=== PATIENT | male | born 1970 | race Two or more races ===

== ENCOUNTER 2021-05-09 10:57 | Emergency (ER) | payer MEDICAID ==
[~2021-05-09] VITALS: Ht 160 cm; Wt 97.5 kg
--- NOTE | 2021-05-09 11:03 | NUR ---
BIBRA 40 C/O SHAKING AND HIGH BLOOD PRESSURE. PT STATED HE LAST DRANK X1 DAY. PT IS A&O X4. PT BREATHING IS REGULAR AND UNLABORED. PT WAS ATTCHED TO MONITOR.
--- NOTE | 2021-05-09 11:04 | NUR ---
DR CORTES AT BEDSIDE.
--- NOTE | 2021-05-09 11:06 | NUR ---
20G IV L AC WAS INITIATED. LAB WERE COLLECTED AND SENT.
--- NOTE | 2021-05-09 11:12 | NUR ---
URINE WAS COLLECTED AND SENT TO LAB
[2021-05-09] MEDS ORDERED: ONDANSETRON HCL/PF 4 MG/2 ML VIAL ONE (11:18)
[2021-05-09] MEDS ORDERED: LORAZEPAM INJ 2 MG/ML VIAL ONE ×2 (11:19→11:59)
[2021-05-09 11:26] LABS: CALCIUM, SERUM 8.9 mg/dL (8.5-10.1); CARBON DIOXIDE 27 mmol/L (21-32); CHLORIDE 104 mmol/L (98-107); CREATININE 0.7 mg/dL (0.6-1.3); GLUCOSE 145 mg/dL (74-106); POTASSIUM 3.6 mmol/L (3.5-5.1); SODIUM SERUM 145 mmol/L (136-145); UREA NITROGEN, BLOOD 7 mg/dL (7-18)
[2021-05-09] MEDS ORDERED: IV NS 0.9% 1,000 ML BAG IV ONE (11:30)
[2021-05-09] MEDS ORDERED: ONDANSETRON HCL/PF 4 MG/2 ML VIAL IVP ONE (11:30)
[2021-05-09] MEDS ORDERED: LORAZEPAM INJ 2 MG/ML VIAL IV ONE (11:30)
[2021-05-09 11:31] LABS: ALANINE AMINOTRANSFERASE 56 U/L (12-78); ALBUMIN 3.6 g/dL (3.4-5.0); ALCOHOL, BLOOD 208 mg/dL (0-0); ALKALINE PHOSPHATASE 239 U/L (46-116); ASPARTATE AMINOTRANSFERASE 112 U/L (15-37); BILIRUBIN,DIRECT 0.9 mg/dL (0.0-0.2); BILIRUBIN,TOTAL 1.6 mg/dL (0.2-1.0); TOTAL PROTEIN, SERUM 9.1 g/dL (6.4-8.2)
[2021-05-09 11:43] LABS: ACETAMINOPHEN < 10 ug/ml (10-30)
[2021-05-09] MEDS ORDERED: LORAZEPAM 1 MG TABLET PO ONE ×2 (12:00→15:30)
[2021-05-09 12:09] LABS: BASOPHILS % (AUTO) 0.2 % (0.0-2.0); EOSINOPHILS % (AUTO) 2.1 % (0.0-6.0); HEMATOCRIT 45 % (39-51); HEMOGLOBIN 14.9 g/dL (13.5-17.5); LYMPHOCYTES # (AUTO) 2.4 K/uL (0.8-4.8); LYMPHOCYTES % (AUTO) 36.2 % (20.0-44.0); MEAN CORPUSCULAR HGB CONC 33 g/dl (31.0-36.0); MEAN CORPUSCULAR VOLUME 91 fL (80-96); MONOCYTES # (AUTO) 0.4 K/uL (0.1-1.30); MONOCYTES % (AUTO) 5.8 % (2.0-12.0); NEUTROPHILS # (AUTO) 3.6 K/uL (1.8-8.9); NEUTROPHILS % (AUTO) 55.7 % (43.0-81.0); PLATELET COUNT (AUTO) 57 K/uL (150-450); RED BLOOD CELL COUNT(AUTO) 4.96 MIL/uL (4.5-6.0); WHITE BLOOD COUNT (AUTO) 6.5 K/uL (4.3-11.0)
[2021-05-09 12:12] LABS: BILIRUBIN,URINE NEGATIVE (NEGATIVE); COLOR,URINE YELLOW (YELLOW); LEUKOCYTE ESTERASE ,URINE NEGATIVE (NEGATIVE); NITRITE, URINE NEGATIVE (NEGATIVE); PH,URINE 7.5 (5.0-8.0); PROTEIN,URINE NEGATIVE (NEGATIVE); UGLUCOSE NEGATIVE (NEGATIVE)
[2021-05-09 12:23] LABS: BACTERIA,URINE Few /HPF (None Seen); RBC,URINE NONE SEEN /HPF (0-2); SQUAMOUS EPITHELIAL CELL,UR Rare /HPF (None Seen); URINE AMORPHOUS PHOSPHATES Few /HPF (None Seen); WBC,URINE 0-2 /HPF (0-3)
[2021-05-09 12:29] LABS: BAND % (MANUAL) 1 % (0.0-5.0); EOSINOPHILS % (MANUAL) 2 % (0-4); LYMPHOCYTES % (MANUAL) 33 % (16-48); MONOCYTES % (MANUAL) 6 % (0-11.0); NEUTROPHILS % (MANUAL) 58 (42-76)
[2021-05-09] MEDS ORDERED: LORAZEPAM 1 MG TABLET ONE (15:15)
[2021-05-09 15:29] VITALS: BP 128/88
--- NOTE | 2021-05-09 15:30 | NUR ---
Patient discharged to home in stable condition. Written and verbal after care instructions given. Patient verbalizes understanding of instruction.IV removed. Catheter intact and site benign. Pressure and 4x4 applied to site. No bleeding noted.
== END 2021-05-09 15:30 | disposition home or self-care (01) ==
LOC: ER 10:59
DX: F10.139 Alcohol abuse with withdrawal, unspecified (principal); R74.01 Elevation of levels of liver transaminase levels; I10 Essential (primary) hypertension; Y90.7 Blood alcohol level of 200-239 mg/100 ml
CPT/HCPCS: 36415; 80048; 80076; 80143; 80307; 80320; 81001; 84484; 85007; 85025; 93005; 96361; 96374; 96375; 99284; J2060 ×2; J2405; J7030; G0480

== ENCOUNTER 2021-05-11 23:32 | Emergency (ER) | payer MEDICAID ==
[~2021-05-11] VITALS: Ht 160 cm; Wt 96.2 kg
[2021-05-12] MEDS ORDERED: hydrALAZINE HCL IV 20 MG VIAL IV ONE
[2021-05-12] MEDS ORDERED: diphenhydrAMINE HCL 50 MG/ML VIAL IV ONE
[2021-05-12] MEDS ORDERED: diphenhydrAMINE HCL 50 MG/ML VIAL ONE (00:15)
[2021-05-12] MEDS ORDERED: hydrALAZINE HCL IV 20 MG VIAL ONE (00:15)
--- NOTE | 2021-05-12 00:22 | NUR ---
pt came in c/o dizziness,headach,insomnia,and hihg bp. pt placed on monitor. pt denies any pain at this time.
[2021-05-12 00:40] LABS: BASOPHILS % (AUTO) 0.6 % (0.0-2.0); EOSINOPHILS % (AUTO) 2.1 % (0.0-6.0); HEMATOCRIT 44 % (39-51); HEMOGLOBIN 14.7 g/dL (13.5-17.5); LYMPHOCYTES # (AUTO) 1.4 K/uL (0.8-4.8); LYMPHOCYTES % (AUTO) 24.2 % (20.0-44.0); MEAN CORPUSCULAR HGB CONC 34 g/dl (31.0-36.0); MEAN CORPUSCULAR VOLUME 90 fL (80-96); MONOCYTES # (AUTO) 0.6 K/uL (0.1-1.30); MONOCYTES % (AUTO) 9.6 % (2.0-12.0); NEUTROPHILS # (AUTO) 3.8 K/uL (1.8-8.9); NEUTROPHILS % (AUTO) 63.5 % (43.0-81.0); RED BLOOD CELL COUNT(AUTO) 4.86 MIL/uL (4.5-6.0)
[2021-05-12 01:07] LABS: CALCIUM, SERUM 9.8 mg/dL (8.5-10.1); CARBON DIOXIDE 28 mmol/L (21-32); CHLORIDE 99 mmol/L (98-107); CREATININE 0.7 mg/dL (0.6-1.3); GLUCOSE 101 mg/dL (74-106); POTASSIUM 3.4 mmol/L (3.5-5.1); SODIUM SERUM 137 mmol/L (136-145); UREA NITROGEN, BLOOD 12 mg/dL (7-18)
--- NOTE | 2021-05-12 01:16 | NUR ---
CALLED [facility] TO HAVE IMAGES READ
[2021-05-12 01:26] LABS: ALANINE AMINOTRANSFERASE 45 U/L (12-78); ALBUMIN 3.5 g/dL (3.4-5.0); ALKALINE PHOSPHATASE 158 U/L (46-116); ASPARTATE AMINOTRANSFERASE 93 U/L (15-37); BILIRUBIN,DIRECT 1.8 mg/dL (0.0-0.2); BILIRUBIN,TOTAL 3.9 mg/dL (0.2-1.0); PLATELET COUNT (AUTO) 49 K/uL (150-450); TOTAL PROTEIN, SERUM 8.7 g/dL (6.4-8.2)
[2021-05-12 01:29] LABS: LYMPHOCYTES % (MANUAL) 18 % (16-48); NEUTROPHILS % (MANUAL) 75 (42-76)
[2021-05-12 01:30] LABS: EOSINOPHILS % (MANUAL) 1 % (0-4); MONOCYTES % (MANUAL) 6 % (0-11.0)
[2021-05-12] MEDS ORDERED: AMLO10TA4 PO (02:31)
[2021-05-12 03:03] VITALS: BP 149/89
--- NOTE | 2021-05-12 03:04 | NUR ---
Patient discharged to home in stable condition.RX and Written and verbal after care instructions given. Patient verbalizes understanding of instruction.IV removed. Catheter intact and site benign. Pressure and 4x4 applied to site. No bleeding noted.
== END 2021-05-12 03:04 | disposition home or self-care (01) ==
LOC: ER 23:34
DX: I10 Essential (primary) hypertension (principal); D69.6 Thrombocytopenia, unspecified; F10.10 Alcohol abuse, uncomplicated; R51.9 Headache, unspecified; Y90.0 Blood alcohol level of less than 20 mg/100 ml
CPT/HCPCS: 36415; 70450; 71045; 80048; 80076; 80320; 84484; 85007; 85025; 85730; 93005; 96374; 96375; 99285; J0360; J1200; G0480

== ENCOUNTER 2021-05-12 22:05 | Emergency (ER) | payer MEDICAID ==
[~2021-05-12] VITALS: Ht 160 cm; Wt 96.2 kg
[~2021-05-12 22:05] MED LIST: AMLO10TA4 PO
--- NOTE | 2021-05-12 22:32 | NUR ---
PT BIBS C/O HIGH BP OF 190/104 STATING HE CHECKED IT X3 TO MAKE SURE. PT IS A/O X4.PLACED ON MONITOR BP IS 170/98 AT THIS TIME.
--- NOTE | 2021-05-12 23:03 | NUR ---
Patient discharged to home in stable condition. Written and verbal after care instructions given. Patient verbalizes understanding of instruction. Pt ambulatory with a steady gait
[2021-05-12 23:44] VITALS: BP 172/98
== END 2021-05-12 23:05 | disposition home or self-care (01) ==
LOC: ER 22:06
DX: I10 Essential (primary) hypertension (principal); Z79.899 Other long term (current) drug therapy